=== PATIENT | male | born 1940 | race Caucasian/White ===

== ENCOUNTER 2018-02-19 00:35 | Emergency (ER) | payer MEDICARE, OTHER ==
[~2018-02-19] VITALS: Ht 167.6 cm; Wt 74.8 kg
--- OUTSIDE RECORDS SUMMARY | ~2018-02-19 | XMS | Clinical Summary ---
Demographics + + + | Address | [address] | | | [place] [address] | + + + | Home Phone | | + + + | Preferred Language | Unknown | + + + | Marital Status | | + + + | Scientology Affiliation | 1077 | + + + | Race | Unknown | + + + | Ethnic Group | Unknown | + + + Author + + + | Author | [facility] | | | and Andrewana | + + + | Organization | [facility] | | | and Andrewana | + + + | Address | Unknown | + + + | Phone | Unavailable | + + + Support + + +---------+ + | Name | Relationship | Address | Phone | + + +---------+ + | LILIA ROBERT ECON | Unknown | | + + +---------+ + Care Team Providers + +------+ + | Care Forming Yardage Control Operator Name | Role | Phone | + +------+ + PP | Unavailable | + +------+ + Allergies Not on File Current Medications Not on file Active Problems Not on file Social History + +-------+ +--------+------+ | Tobacco Use | Types | Packs/Day | Years | Date | | | | | Used | | + +-------+ +--------+------+ | Never Assessed | | | | | + +-------+ +--------+------+ + + + | Sex Assigned at | Date Recorded | | | | + + + | Not on file | | + + + Plan of Treatment + + + + + | Health Maintenance | Due Date | Last Done | Comments | + + + + + | Vaccine: | | | | | Dtap/Tdap/Td (1 - | 0 | | | | Tdap) | | | | + + + + + | Vaccine: Zoster (#1) | | | | | | 1 | | | + + + + + | Vaccine: | | | | | Pneumococcal 65+ | 6 | | | | Low/Medium Risk (1 | | | | | of 2 - PCV13) | | | | + + + + + | Vaccine: Influenza | | | | | (Season Ended) | 8 | | | + + + + + Results Not on filefrom Last 3 Months"
--- OUTSIDE RECORDS SUMMARY | ~2018-02-19 | XMS | Clinical Summary ---
Demographics + + + | Address | [address] | | | [place] [address] | + + + | Home Phone | | + + + | Preferred Language | Unknown | + + + | Marital Status | | + + + | Sikh Affiliation | 1077 | + + + | Race | Unknown | + + + | Ethnic Group | Unknown | + + + Author + + + | Author | [facility] | | | and Andrewana | + + + | Organization | [facility] | | | and Andrewana | [...] Team Providers + +------+ + | Care Alcoholism Worker Name | Role | Phone | + [...]
[~2018-02-19 00:35] MED LIST: ASPIRIN EC81 MG PO; CETIRIZINE HCL10 MG PO; CIALIS20 MG PO; CIALIS5 MG PO; DOXAZOSIN MESYLA1 MG PO; FELODIPINE ER10 MG PO; FLUTICASONE PRO16 GM NS; LISINOPRIL40 MG PO; MULTI-DAY VITA1 EACH PO; NORCO 5-325 TA1 EACH PO; OMEPRAZOLE20 MG PO; PYRIDIUM200 MG PO; UROXATRAL10 MG PO; VITAMIN D2400 UNIT PO; VITAMIN E400 UNIT PO; VITAMINS
--- NOTE | 2018-02-19 06:26 | EKG ---
[facility] [address] [place] [address] Signed Normal sinus rhythm Nonspecific ST abnormality Abnormal ECG No previous ECGs available Confirmed by YULIANA BRITTON MD ([id number]) on 02/19/2018 6:26:05 AM Electronically Signed By: YULIANA BRITTON MD 02/19/18 0626 PATIENT NAME: ALLIE ROMO KENDAL Electrocardiogram DATE OF : 42 PHYSICIAN: YULIANA BRITTON MD REPORT #: [id number] REPORT IS CONFIDENTIAL AND NOT TO BE RELEASED WITHOUT AUTHORIZATION
== END 2018-02-19 02:01 | disposition home or self-care (01) ==
LOC: ED 00:35
DX: R00.2 Palpitations (principal); M79.604 Pain in right leg; I10 Essential (primary) hypertension; Z79.899 Other long term (current) drug therapy
CPT/HCPCS: 71045; 80053; 83735; 84484; 85025; 93005; 93010; 99283

== ENCOUNTER 2025-07-01 12:08 | Emergency (ER) | payer MEDICARE, OTHER ==
[~2025-07-01] VITALS: Ht 167.6 cm; Wt 54.5 kg
[~2025-07-01 12:08] MED LIST changes: -LISINOPRIL40 MG PO; +ZESTRIL20 MG PO
[2025-07-01 12:44] LABS: BASOPHILS 0.1 % (0.2-1.2); EOSINOPHILS 0 % (0.8-7.0); LYMPHOCYTES 2.9 % (21.8-53.1); MCH 30.3 PG (25.7-32.2); MCHC 34.0 g/dL (32.3-36.5); MCV 89.1 fL (79.0-92.2); MONOCYTES 4.8 % (5.3-12.2); NEUTROPHILS 91.5 % (34.0-67.9); RBC 4.42 M/uL (4.63-6.08)
[2025-07-01 13:02] LABS: ALT (SGPT) 19.0 U/L (14-59); AST (SGOT) 26.0 U/L (15-37); GLOMERULAR FILTRATION RATE,EST 85.0 mL/min (>60); PROTEIN, TOTAL 6.5 g/dL (6.4-8.2); UREA NITROGEN 34.0 mg/dL (7-18)
[2025-07-01] MEDS ORDERED: CITALOPRAM HBR20 MG PO (13:03)
[2025-07-01] MEDS ORDERED: SPIRIVA RESPIMAT4 GM INH (13:03)
[2025-07-01 13:55] LABS: LACTIC ACID, BLOOD 0.7 mmol/L (0.4-2.0)
[2025-07-01] MEDS ORDERED: FUROSEMIDE 40 MG/4 ML VIAL IV ONE (14:30)
[2025-07-01] MEDS ORDERED: ASPIRIN 81 MG CHEW PO ONE (15:15)
[2025-07-01 20:01] LABS: INFLUENZA B NAA NEGATIVE (NEGATIVE); RESPIRATORY SYNCYTIAL VIR NAA NEGATIVE (NEGATIVE)
[2025-07-01 21:40] VITALS: BP 114/78
--- NOTE | 2025-07-03 15:13 | EKG ---
[facility] [address] [facility] [place] [address] Signed Normal sinus rhythm Low voltage QRS Cannot rule out Anteroseptal infarct , age undetermined Abnormal ECG When compared with ECG of 19-FEB-2018 00:59, Minimal criteria for Anteroseptal infarct are now present Non-specific change in ST segment in Anterolateral leads Nonspecific T wave abnormality now evident in Inferior leads T wave inversion now evident in Anterior leads Confirmed by Tiffanie Hall MD ([id number]) on 07/03/2025 3:12:50 PM Electronically Signed By: TIFFANIE HALL MD 07/03/25 1513 PATIENT NAME: ALLIE ROMO Electrocardiogram DATE OF : 42 PHYSICIAN: TIFFANIE HALL MD REPORT #: [id number] REPORT IS CONFIDENTIAL AND NOT TO BE RELEASED WITHOUT AUTHORIZATION
== END 2025-07-01 21:50 | disposition short-term general hospital (02) ==
LOC: ED 12:08
PROVIDERS: Emergency Medicine
DX: I21.4 Non-ST elevation (NSTEMI) myocardial infarction (principal); I11.0 Hypertensive heart disease with heart failure; I50.9 Heart failure, unspecified; J18.9 Pneumonia, unspecified organism; Z87.891 Personal history of nicotine dependence; Z79.899 Other long term (current) drug therapy; Z11.59 Encounter for screening for other viral diseases
CPT/HCPCS: 36415; 71045; 80053; 83605; 83735; 83880; 84484; 85025; 87502; 93005; 93010; 96365; 96375; 99285-25; A9270; J0696; J1938; U0002

== ENCOUNTER 2025-09-12 17:39 | Inpatient (IN) | payer OTHER, MEDICARE ==
[~2025-09-12] VITALS: Ht 167.6 cm; Wt 50.3 kg
[~2025-09-12 17:39] MED LIST changes: +CITALOPRAM HBR20 MG PO; +COZAAR50 MG PO; +SPIRIVA RESPIMAT4 GM INH; -ZESTRIL20 MG PO
[2025-09-12 21:06] LABS: BASOPHILS 0.1 % (0.2-1.2); EOSINOPHILS 0.7 % (0.8-7.0); LYMPHOCYTES 11.6 % (21.8-53.1); MCH 30.5 PG (25.7-32.2); MCHC 33.2 g/dL (32.3-36.5); MCV 91.8 fL (79.0-92.2); MONOCYTES 5.1 % (5.3-12.2); NEUTROPHILS 82.4 % (34.0-67.9); RBC 4.17 M/uL (4.63-6.08)
[2025-09-12 21:18] LABS: INR 1.06 (0.80-1.30); PROTIME 13.1 Sec (11.2-14.2)
[2025-09-12] MEDS ORDERED: ACETAMINOPHEN 325 MG TAB PO PRN (21:30)
[2025-09-12 21:31] LABS: ALT (SGPT) 23.0 U/L (14-59); AST (SGOT) 23.0 U/L (15-37); GLOMERULAR FILTRATION RATE,EST 89.0 mL/min (>60); PROTEIN, TOTAL 5.6 g/dL (6.4-8.2); UREA NITROGEN 17.0 mg/dL (7-18)
[2025-09-12] MEDS ORDERED: HYDROmorphone HCL 1 MG/ML SYR IV PRN (21:45)
[2025-09-12] MEDS ORDERED: IPRATROPIUM BROMIDE 2.5 ML VIAL INH PRN (21:45)
[2025-09-12] MEDS ORDERED: LIDOCAINE HCL 2% 5 ML SDV ONE (22:08)
[2025-09-12] MEDS ORDERED: SODIUM CHLORIDE 0.9% 20 ML IV ONE (22:08)
[2025-09-12] MEDS ORDERED: Ropivacaine HCl 0.5% 30 ML VIAL ONE (22:09)
--- NOTE | 2025-09-12 22:10 | NUR ---
PT RECEIVED TO ROOM 114 VIA STRETCHER FROM ER. RECEIVED REPORT VIA PHONE FROM SUPERVISOR CIGAR MAKING MACHINE. PTS FAMILY AT BEDSIDE FOR ADMISSION AND TOOK ALL BELONGINGS HOME. PT REQUIRED MAX ASSIST FOR TRANSFER TO HOSPITAL BED. ORIENTED X 4. REPORTS PAIN TO RIGHT HIP, WILL ADMINISTER PRN IV DILAUDID. LSC, PT IS ON 2L O2. CPOX PLACED. HRR CAMI IN THE 50'S. TELE IN PLACE. BTA, LBM 09/11. DUE TO VOID. LFA SL WNL. RLE SLIGHTLY SHORTENED, EXTERNALLY ROTATED. CMS INTACT. EXTREMITIES COOL, WARM BLANKET GIVEN. CALL LIGHT WITHIN REACH. PT TO BE NPO AT MIDNIGHT.
[2025-09-12 22:20] VITALS: BP 184/84
--- NOTE | 2025-09-12 23:04 | NUR ---
CONTACTED REGARDING PTS ELEVATED B/P UPON ADMISSION-RECEIVED ORDER FOR PRN HYDRALAZINE IF SBP >160. ALSO ASKED MD IF HE WANTED IVF FOR PT, MD STATED NO.
[2025-09-12 23:25] VITALS: BP 164/56
[2025-09-12 23:27] VITALS: BP 164/56
--- NOTE | 2025-09-12 23:28 | NUR ---
THREAD TRIMMER RECHECKED PT B/P AT RN REQUEST. PT STATES NO NEEDS AT THIS TIME AND RN NOTIFIED OF B/P.
[2025-09-13] VITALS (17 sets, daily range): BP systolic 102–176; BP diastolic 40–91
--- NOTE | 2025-09-13 00:36 | NUR ---
PT AWAKE, SLEEPING BETWEEN CARE. REPORTS BEING COMFORTABLE ENOUGH TO SLEEP SOME. PT IS NOW NPO FOR POTENTIAL SURGERY TUESDAY.
--- NOTE | 2025-09-13 01:22 | NUR ---
RETURNED GOODS RECEIVING CLERK OBTAINED VITALS. PT STATES NO NEEDS AT THIS TIME. CALL LIGHT WITHIN REACH.
--- NOTE | 2025-09-13 01:58 | NUR ---
B/P STILL ELEVATED, PRN HYDRALAZINE ADMINISTERED.
[2025-09-13 05:34] LABS: BASOPHILS 0.2 % (0.2-1.2); EOSINOPHILS 0 % (0.8-7.0); LYMPHOCYTES 5.0 % (21.8-53.1); MCH 30.2 PG (25.7-32.2); MCHC 33.3 g/dL (32.3-36.5); MCV 90.6 fL (79.0-92.2); MONOCYTES 2.5 % (5.3-12.2); NEUTROPHILS 92.0 % (34.0-67.9); RBC 4.57 M/uL (4.63-6.08)
--- NOTE | 2025-09-13 05:39 | NUR ---
PT YELLING OUT, DID NOT KNOW WHERE HE WAS. PT WAS EASILY REORIENTED. PT REPORTS NEEDING TO VOID, URINAL GIVEN TO PT. CMS TO RLE INTACT. BED ALARM IN PLACE FOR SAFETY. PT REMAINS NPO.
[2025-09-13 05:51] LABS: ALT (SGPT) 25.0 U/L (14-59); AST (SGOT) 22.0 U/L (15-37); GLOMERULAR FILTRATION RATE,EST 90.0 mL/min (>60); PROTEIN, TOTAL 6.2 g/dL (6.4-8.2); UREA NITROGEN 19.0 mg/dL (7-18)
--- NOTE | 2025-09-13 06:03 | EKG ---
[facility] [address] [facility] [place] [address] Signed Sinus bradycardia Nonspecific T wave abnormality Prolonged QT Abnormal ECG When compared with ECG of 01-JUL-2025 13:13, Vent. rate has decreased BY 44 BPM Minimal criteria for Anteroseptal infarct are no longer present Nonspecific T wave abnormality has replaced inverted T waves in Anterior leads QT has lengthened Confirmed by DEEP BELL MD ([id number]) on 09/13/2025 6:02:52 AM Electronically Signed By: DEEP BELL 09/13/25 0603 PATIENT NAME: ALLIE ROMO KENDAL Electrocardiogram DATE OF : 42 PHYSICIAN: DEEP BELL REPORT #: [id number] REPORT IS CONFIDENTIAL AND NOT TO BE RELEASED WITHOUT AUTHORIZATION
--- NOTE | 2025-09-13 06:04 | NUR ---
PT LYING IN BED. VITALS DONE, BLADDER SCAN DONE. NURSE NOTIFIED OF RESULTS. CALL LIGHT IN REACH, NO NEEDS AT THIS TIME.
--- NOTE | 2025-09-13 06:10 | NUR ---
CONTACTED REGARDING PT'S PVR OF 698cc. PT ONLY VOIDED 150cc. RECEIVED ORDER TO PLACE ZAMAN.
--- NOTE | 2025-09-13 06:25 | NUR ---
ZAMAN CATH PLACED USING STERILE PROCEDURE PER ORDERS. PATIENT TOLERATED WELL. CATH DRAINING TO BAG HANGING ON LEFT SIDE OF BED BELOW WAIST LEVEL. PATIENT DENIES NEEDS AT THIS TIME. CALL LIGHT IN REACH.
--- NOTE | 2025-09-13 07:07 | NUR ---
Pt report received from BRITTANI Zamudio. Pt is resting supine in bed, family at bedside. White board updated. Pt denies needs at this time. Side rails up x4, call light in reach.
[2025-09-13] MEDS ORDERED: CITALOPRAM HYDROBROMIDE 20 MG TAB PO SCH (09:00)
[2025-09-13] MEDS ORDERED: FAMOTIDINE 20 MG TAB PO SCH (09:00)
[2025-09-13] MEDS ORDERED: POTASSIUM CHLORIDE 20 MEQ in DEXTROSE 5% 250 ML IV ONE (09:30)
--- NOTE | 2025-09-13 10:04 | NUR ---
UR CLINICAL REVIEW: 2 MN FOR VERSALUS-PER CARD DOFFER MEETS INPT FOR HIP FRACTURE WITH NEED FOR PAIN MANAGEMENT, SURGICAL PROCEDURE AND POST PT/OT MEDICARE INPT 09/12/25 @ 213 ORDER MATCHES REG NO AUTH REQUIRED PER MEDICARE GUIDELINES DISCHARGE TO HOME WITH FAMILY SUPPORT WHEN STABLE
--- NOTE | 2025-09-13 10:30 | NUR ---
DID SURGICAL WIPE DOWN ON PATIENT. NEW GOWN. NURSE CAME IN AND HELPED PUT SCDS ON.
--- NOTE | 2025-09-13 10:54 | NUR ---
In with pt for reassessment. Pt reports his pain comes and goes but he is doing okay right now, feeling drowsy. Family member at bedside. IV Potassium Chloride started IV after IV reassessment (flushes well, good return, no pain, no redness or leaking noted).
--- NOTE | 2025-09-13 10:59 | NUR ---
Spoke with OR card tender Tammy and asked about whether or not we need to give or hold PO meds for this pt (has scheduled PO pepcid included) and was advised to hold the PO meds and not worry about IV pepcid at this time.
[2025-09-13] MEDS ORDERED: CEFAZOLIN SODIUM 2 GM in SODIUM CHLORIDE 0.9% 100 ML IV SCH ×2 (11:00→15:00)
[2025-09-13] MEDS ORDERED: TRANEXAMIC ACID IN NACL,ISO-OS 1,000 MG/100 ML PIGGYBACK IV SCH (11:00)
[2025-09-13] MEDS ORDERED: LIPITOR40 MG PO (11:08)
[2025-09-13] MEDS ORDERED: TOPROL XL25 MG PO (11:08)
[2025-09-13] MEDS ORDERED: FLOMAX0.4 MG PO (11:09)
--- NOTE | 2025-09-13 11:10 | NUR ---
MED REC COMPLETE
[2025-09-13] MEDS ORDERED: INTRA-ARTICULAR ANALGESIC INJECTION IAARTIC ONE (11:15)
--- NOTE | 2025-09-13 11:21 | NUR ---
plant taxonomist Tammy from OR here to transport pt to Day Surgery
--- NOTE | 2025-09-13 11:41 | NUR ---
INTO SEE PATIENT. PERSONAL HEALTH INFORMATION REVIEWED. GRANDSON (JACKSON) AT BEDSIDE. PATIENT LIVES IN A HOUSE. RAMP INTO THE HOUSE. HE JUST STARTED RECENTLY USING A CANE. IS ON HOSPICE AT HOME. FAMILY AT THE HOME 06/06. STOPPED DRIVING IN JUNE. DOES NOT WEAR OXYGEN OR CPAP. DENIES ANY DIFFCULTY PAYING UTILITIES OR OBTAINING FOOD. PATIENT DOES NOT WANT TO GO TO SNF AT TIME OF DISCHARGE. FAMILY SUPPORTS THIS. HE WOULD LIKE TO GET HOME TO HIS AND HOME HEALTH.
[2025-09-13] MEDS ORDERED: LIDOCAINE HCL 2% 5 ML SDV ONE (11:42)
[2025-09-13] MEDS ORDERED: BUPIVACAINE 0.75% IN DEXTROSE 2 ML AMP ONE (11:43)
[2025-09-13] MEDS ORDERED: MORPHINE SULFATE 1 MG/ML VIAL ONE (11:43)
[2025-09-13] MEDS ORDERED: KETAMINE in NS 50 MG/5 ML SYR ONE (11:43)
[2025-09-13] MEDS ORDERED: PHARMACY RENAL DOSE ADJUSTMENT 1 DOSE MISC PO SCH (12:00)
[2025-09-13] MEDS ORDERED: HYDROmorphone HCL 1 MG/ML SYR IV PRN (13:00)
[2025-09-13] MEDS ORDERED: MORPHINE SULFATE 4 MG/ML VIAL IV PRN (13:00)
[2025-09-13] MEDS ORDERED: PROCHLORPERAZINE EDISYLATE 10 MG/2 ML VIAL IV PRN (13:00)
[2025-09-13] MEDS ORDERED: NALOXONE HCL 0.4 MG SYR IV PRN (13:00)
[2025-09-13] MEDS ORDERED: HYDROCODONE/ACETA 7.5/325 TAB PO PRN (13:15)
[2025-09-13] MEDS ORDERED: KETOROLAC TROMETHAMINE 30 MG/ML VIAL IV PRN (13:15)
--- NOTE | 2025-09-13 13:21 | NUR ---
09/13/25 1321 Nancy Riddle PATIENT IS ABLE TO MOVE HIS RIGHT FOOT AND TOES AND UNABLE TO MOVE HIS LEFT FOOT AND TOES. HE DOES REPORT SENSATION ON THE LEFT, BUT REPORTS IT FEELS NUMB. OXYGEN REMAINS 100% ON 6L VIA MASK AND OXYGEN MASK IS REMOVED. PATIENT DENIES PAIN.
--- NOTE | 2025-09-13 14:04 | NUR ---
Pt back to room at 1353 hours, transported via bed by DIGITAL MARKETING APPRENTICE Patrick. Pt is A&O reports he can feel touch in both feet and legs, no N&T at this time, denies pain at this time. Dressing is CDI. Pt's grandson is at bedside. VSS. Pt is on CPOX, SCDs on, call light in reach. Pt provided with iced water, and snacks and encouraged to slowly try to eat and drink. Pt has no c/o nausea at this time.
--- NOTE | 2025-09-13 14:27 | NUR ---
TELE #4 PLACED PER ORDER, PT STATES NO CURRENT NEEDS, VISITOR AT BEDSIDE, CALL LIGHT WITHIN REACH.
--- NOTE | 2025-09-13 16:00 | NUR ---
In with pt for hourly post op VS. Pt is working with Physical Therapy at this time. VSS. Noted that IV site appears to be infiltrated. 87ml of ancef has been infused with 13mls remaining. Reviewed policy on IV infiltration and will apply a hot pack to IV site after removing IV. Will start another IV as pt has more IV medications to receive on director apparel.
--- NOTE | 2025-09-13 16:08 | NUR ---
Physical therapist in with pt
--- NOTE | 2025-09-13 19:45 | NUR ---
PATIENT RESTING IN BED. DENIES NEEDS AT THIS TIME. CALL LIGHT IN REACH. BED ALARM ON.
[2025-09-13] MEDS ORDERED: DOXAZOSIN MESYLATE 1 MG TAB PO SCH (21:00)
[2025-09-13] MEDS ORDERED: SENNOSIDES 1 TAB PO SCH (21:00)
[2025-09-13] MEDS ORDERED: ASPIRIN 325 MG TAB PO SCH (21:00)
--- NOTE | 2025-09-13 23:27 | NUR ---
PATIENT RESTING IN BED. SCHEDULED IV ABX INFUSING PER ORDER. ZAMAN CATH CARE PROVIDED PER ORDER. PATIENT DENIES FURTHER NEEDS. CALL LIGHT IN REACH. BED ALARM ON.
[2025-09-14] VITALS (9 sets, daily range): BP systolic 102–121; BP diastolic 40–50
--- NOTE | 2025-09-14 01:30 | NUR ---
PATIENT RESTING IN BED. DENIES NEEDS AT THIS TIME. CALL LIGHT IN REACH.
--- NOTE | 2025-09-14 06:39 | NUR ---
VIDEO ARCADE MANAGER OBTAINED VITALS AND I&O. ZAMAN EMPTIED AND FRESH ICE PACK PLACED ON PT HIP. PT STATES NO NEEDS AT THIS TIME. CALL LIGHT WITHIN REACH AND BED ALARM ON.
--- NOTE | 2025-09-14 07:15 | NUR ---
Pt report received from BRITTANI Pierce
--- NOTE | 2025-09-14 08:56 | NUR ---
PATIENT IN BED AT THIS TIME. THIS PERSONNEL MANAGER CHARTED HOURLY ROUNDS. PATIENT REFUSED CHAIR AT THIS TIME BUT IS WILLING TO GET INTO CHAIR AFTER BREAKFAST. CALL LIGHT WITHIN REACH, NO FURTHER NEEDS.
--- NOTE | 2025-09-14 10:20 | NUR ---
In with pt for assessment, pt has been sleeping for most of the morning. SPO2 at 87% on room air. Pt had removed NC at some point. Spoke with Yahaira in RT who advised that she was told this pt has a hx of COPD and is a former smoker. Pt's grandson states he was never told that his grandpa has COPD. He does state that he feels like his mentation is declining at a rapid rate but that his grandpa tries to act like he's not having any issues. He advises that he just goes from his bed to a chair in the living room and isn't very active and he doesn't eat much, especially when his is ill. Pt did not eat his breakfast this morning. I noted that he only had about 200ml urine output documented on the board in the room for restaurant shift supervisor from 10pm until now and the urine in the cath bag (very little) is dark and clear. Pt is not taking much fluid PO. Spoke with Dr. Villalba and advised him of this as he advised he is also caring for this pt. Verbal order obtained from Dr. Villalba to administer one 500ml bolus of LR, one time, now. Repeated order back to Dr. Villalba and entered it.
[2025-09-14] MEDS ORDERED: LACTATED RINGER'S 500 ML IV SCH (10:30)
--- NOTE | 2025-09-14 17:39 | NUR ---
Notified by RT Yahaira that the pt's family member at bedside is asking about when the pt's next pain med is due.
--- NOTE | 2025-09-14 17:56 | NUR ---
TOOK OUT ROOM TRASH AND CLEANED UP ROOM.
--- NOTE | 2025-09-14 18:55 | NUR ---
PC to Dr. Villalba to update him on this pt's urine output for the shift. It seems to have decreased during the second half of the shift. Verbal order received from Dr. Villalba for CBC now, CBC and BMP in the a.m., UA with reflex, 500ml bolus LR x1 now. Repeated orders back to him for clarification. Orders entered.
[2025-09-14] MEDS ORDERED: LACTATED RINGER'S 500 ML IV ONE (19:15)
[2025-09-14 19:21] LABS: BASOPHILS 0.3 % (0.2-1.2); EOSINOPHILS 3.3 % (0.8-7.0); LYMPHOCYTES 6.8 % (21.8-53.1); MCH 30.5 PG (25.7-32.2); MCHC 33.0 g/dL (32.3-36.5); MCV 92.2 fL (79.0-92.2); MONOCYTES 6.4 % (5.3-12.2); NEUTROPHILS 82.9 % (34.0-67.9); RBC 3.74 M/uL (4.63-6.08)
--- NOTE | 2025-09-14 19:43 | NUR ---
REPORT RECEIVED FROM DAY SHIFT RN. PT LYING IN BED AWAKE. DENIES NEEDS. WHITE BOARD UPDATED. CALL LIGHT IN REACH. BED ALARM FOR SAFETY.
--- NOTE | 2025-09-14 20:19 | NUR ---
PT SITUP IN BED RESTING. VITALS DONE, FACE WASHED, ZAMAN EMPTIED. CALL LIGHT IN REACH, NO NEEDS AT THIS TIME.
--- NOTE | 2025-09-14 20:35 | NUR ---
PHONED FOR MED CLARIFICATION. NEW TELEPHONE ORDERS RECEIVED VERIFIED WITH READBACK METHOD.
[2025-09-14 21:03] LABS: BLOOD/HGB, URINE SMALL (Negative); KETONE, URINE NEGATIVE (Negative); LEUK ESTERASE, URINE TRACE (negative); NITRITE, URINE NEGATIVE (negative)
--- NOTE | 2025-09-14 21:06 | NUR ---
PT RESTING WITH EYES CLOSED. AWAKENS EASILY. ALERT AND ORIENTED X 2 AT THIS TIME. EVENING ASSESSMENT COMPLETE. SCHEDULED MEDS ADMIN PER EMAR. PT DENIES PAIN AT THIS TIME. RIGHT HIP DRESSING INTACT WITH SMALL AMOUNT OLD DRAINAGE. CMS INTACT. SCD'S/TEDS/ICE IN PLACE. ROLLED TOWELS UNDER HEELS. ZAMAN PATENT WITH SMALL AMOUNT YELLOW URINE. UA SENT PER ORDER. ASSISTED PT TO REPOSITION IN BED. PT DENIES FURTHER NEEDS. CALL LIGHT IN REACH. BED ALARM FOR SAFETY.
[2025-09-14 21:18] LABS: EPITHELIAL CELLS, URINE NONE SEEN /lpf (0-1+)
[2025-09-14 21:19] LABS: BACTERIA, URINE 1+ /hpf (negative); CASTS, URINE HYALINE 1+ \\lpf; CRYSTALS, URINE CALCIUM OXALATE 1+ (0-1+); REFLEX CULTURE, URINE Yes (No)
--- NOTE | 2025-09-14 22:52 | NUR ---
PT RESTING IN BED WITH EYES CLOSED. RESPIRATIONS EVEN. SpO2 97% ON 1L/NC. TELE #[address] HR 60'S. CALL LIGHT IN REACH. BED ALARM FOR SAFETY.
--- NOTE | 2025-09-15 00:58 | NUR ---
CPOX ALARMING. ISSUE RESOLVED. PT AWAKE IN BED. DENIES PAIN AT THIS TIME. CONFUSED ON TIME OF DAY. REORIENTATION PROVIDED. PT DENIES NEEDS. CALL LIGHT IN REACH. BED ALARM FOR SAFETY.
[2025-09-15 01:10] VITALS: BP 121/61
--- NOTE | 2025-09-15 01:11 | NUR ---
PT SITTING UP IN BED WATCHING TV. VITALS DONE, ZAMAN EMPTIED. CALL LIGHT IN REACH, NO NEEDS AT THIS TIME.
--- NOTE | 2025-09-15 01:59 | NUR ---
PT AWAKE IN BED. REPORTS RIGHT HIP PAIN. PRN FOR PAIN ADMIN PER EMAR. NO FURTHER NEEDS. CALL LIGHT IN REACH.
--- NOTE | 2025-09-15 02:10 | NUR ---
ZAMAN CARE COMPLETE. LINENS UNDER PT CHANGED. REDNESS NOTED ON COCCYS, BLANCHABLE. 2PA TO REPOSITION WITH PILLOW UNDER RIGHT HIP. FRESH ICE PACK PLACED. PT ABLE TO ASSIST WITH CARES. NO FURTHER NEEDS. BED ALARM IN PLACE. CALL LIGHT IN REACH.
--- NOTE | 2025-09-15 04:16 | NUR ---
PT RESTING IN BED WITH EYES CLOSED. RESPIRATIONS EVEN. CALL LIGHT IN REACH.
[2025-09-15 05:16] LABS: BASOPHILS 0.4 % (0.2-1.2); EOSINOPHILS 8.8 % (0.8-7.0); LYMPHOCYTES 10.4 % (21.8-53.1); MCH 30.5 PG (25.7-32.2); MCHC 33.0 g/dL (32.3-36.5); MCV 92.2 fL (79.0-92.2); MONOCYTES 6.8 % (5.3-12.2); NEUTROPHILS 73.4 % (34.0-67.9); RBC 3.71 M/uL (4.63-6.08)
[2025-09-15 05:17] VITALS: BP 157/58
--- NOTE | 2025-09-15 05:18 | NUR ---
PT LYING IN BED WATCHING TV. HIPS FLOPATED WITH PILLOWS, VITALS DONE, WATER FILLED. CALL LIGHT IN REACH, NO NEEDS AT THIS TIME.
[2025-09-15 05:24] LABS: GLOMERULAR FILTRATION RATE,EST 87.0 mL/min (>60); UREA NITROGEN 29.0 mg/dL (7-18)
--- NOTE | 2025-09-15 05:53 | NUR ---
PT DENIES PAIN. ASSISTED TO REPOSITION WITH PILLOW UNDER BOTH HIPS. FRESH ICE PACK TO RIGHT HIP. PT DENIES NEEDS. BED ALARM FOR SAFETY. CALL LIGHT IN REACH.
--- NOTE | 2025-09-15 07:15 | NUR ---
REPORT RECIEVED FROM BRITTANI RODRIGUEZ. PATIENT RESTING IN BED WITH HIS EYES CLOSED. EVEN AND UNLABORED RESPIRATIONS NOTED. PATIENT IS 92% ON 1.5L NC. CPOX AT BEDSIDE. WHITE BOARD UPDATED. CALL LIGHT AND PERSONAL BELONGINGS ARE WITHIN REACH.
--- NOTE | 2025-09-15 08:50 | NUR ---
PATIENT RESTING IN BED EATING BREAKFAST. KATHARINE PIKCENS IN ROOM ASSISTING PATIENT. CALL LIGHT IS WITHIN REACH.
[2025-09-15 09:06] VITALS: BP 161/67
--- NOTE | 2025-09-15 09:12 | NUR ---
PT WAS CONFUSED THIS MORNING, HE DID NOT KNOW WHERE HE WAS OR WHAT DAY OF THE WEEK IT WAS. HE WANTS TO SIT IN THE CHAIR, SO SOON TWO PEOPLE WERE AVAILABLE - WE GOT THE PT TO THE CHAIR. PT DID NOT EAT BREAKFAST. PT HAS NOT BEEN DRINKING MUCH AT ALL. PT HAS CALL LIGHT AND CHAIR ALARM SET.
--- NOTE | 2025-09-15 09:45 | NUR ---
PATIENT MEDICATED PER EMAR. PATIENT REPORTING 10/10 PAIN IN HIS HIP. PATIENT GIVEN PRN PAIN MEDICATION. PATIENT DID NOT ACTUALLY EAT BREAKFAST DUE TO IT NOT SOUNDING GOOD WHEN HE ATTEMPTED TO EAT. PATIENT DENIES ANY NAUSEA, BUT STATES "MY PAIN IS TOO MUCH RIGHT NOW, I CAN'T THINK ABOUT FOOD." PATIENT EDUCATED THAT THE PAIN MEDICATION CAN MAKE HIM SICK IF HE DOES NOT EAT FOOD WITH IT. PATIENT AGREED TO DRINK CHOCOLATE PROTEIN DRINK PROVIDED. PATIENT WITHOUT FURTHER NEEDS AT THIS TIME. CALL LIGHT AND PERSONAL BELONGINGS ARE WITHIN REACH.
--- NOTE | 2025-09-15 10:45 | NUR ---
PATIENT SITTING UP IN HIS CHAIR WITH HIS GRANDSON, JACKSON AT BEDSIDE. PATIENT REPORTS HIS PAIN IS DOWN TO A "3 NOW" OUT OF 10. PATIENT WITHOUT FURTHER NEEDS AT THIS TIME. CALL LIGHT AND PERSONAL BELONGINGS ARE WITHIN REACH. PATIENT'S GRANDSON EXPRESSED CONCERNS FOR "SHINGLES ON HIS HEAD". NOTIFIED AND STATES HE IS NOT CONCERNED FOR SHINGLES ON AREA.
--- NOTE | 2025-09-15 11:30 | NUR ---
IN ROOM TO PULL PATIENT'S ZAMAN. MILLI PICKENS IN ROOM AND WITH VERBAL ORDER TO HOLD OFF ON PULLING PATIENT'S ZAMAN. MILLI WANTS PATIENT TO RECIEVE A DOSE OF FLOMAX NOW, AND THEN WAIT 1-2 HOURS TO MAKE SURE PATIENT IS NOT GOING TO HAVE RETENTION BEFORE PULLING THE ZAMAN OUT. MILLI STATES SHE WILL ADD ORDERS. NO FURTHER ORDERS FOR THIS RN AT THIS TIME.
--- NOTE | 2025-09-15 12:45 | NUR ---
PATIENT SITTING UP IN HIS CHAIR WITH HIS GRANDSON AT HIS SIDE. FRESH ICE WATER PROVIDED. PATIENT HEART RATE NOTED TO BE BARDYCARDIC WHEN PATIENT SLEEPING. NOTIIED AND STATES PATIENT HAS CHRONIC BRADYCARDIA. WITH NO NEW ORDERS AT THIS TIME.
[2025-09-15] MEDS ORDERED: TAMSULOSIN HCL 0.4 MG CAP PO ONE (13:45)
[2025-09-15] MEDS ORDERED: VALACYCLOVIR HCL 500 MG TAB PO SCH (14:00)
[2025-09-15 14:03] VITALS: BP 102/40
--- NOTE | 2025-09-15 14:16 | NUR ---
PT WAS ASLEEP IN THE CHAIR, PHYSICAL THERAPY AND THIS PHYSICAL THERAPIST TECHNICIAN ASSISTED THE PT BACK TO BED FROM HIS CHAIR. THIS PT IS A 2 PA, AND KEPT FALLING ASLEEP WHILE WE WERE TRYING TO GET HIM TO MOVE. ONCE PT WAS IN BED, HE WAS ASLEEP. SET BED ALARM. TV ON, GRANDSON LEFT. CALL LIGHT IN PT'S HAND.
--- NOTE | 2025-09-15 14:33 | NUR ---
PATIENT MEDICATED PER EMAR. PATIENT RESTING IN BED WITH HIS EYES CLOSED, EASLIY AROUSABLE WITH VERBAL STIMULI. PATIENT REQUESTING TO "GO BACK TO SLEEP FOR A LITTLE BIT LONGER". PATIENT DENIES ANY PAIN AND STATES HE WILL CALL IF HE NEEDS SOMETHING. CALL LIGHT AND PERSONAL BELONGINGS ARE WITHIN REACH.
--- NOTE | 2025-09-15 14:52 | NUR ---
PATIENT CALLED REQUESTING TO GO BACK TO BED. KATHARINE PICKENS AND EMBER PT STATES THEY WILL ASSIST PATIENT BACK TO BED.
--- NOTE | 2025-09-15 15:12 | NUR ---
REPORT RECEIVED FROM BRITTANI PERSON. PATIENT RESTING IN BED, RESPIRATIONS EVEN AND UNLABORED. NC IN PLACE, CPOX AT BEDSIDE. NO NEEDS IDENTIFIED, CALL LIGHT IN REACH.
--- NOTE | 2025-09-15 16:16 | NUR ---
ROUNDED ON PATIENT, TELE BATTERY REPLACED. PATIENT RESTING WITH EYES CLOSED, RESPIRATIONS EVEN AND UNLABORED. NO NEEDS IDENTIFIED, CALL LIGHT IN REACH
[2025-09-15 17:19] VITALS: BP 125/66
--- NOTE | 2025-09-15 17:23 | NUR ---
VS OBTAINED AND RECORDED, PATIENT WOKE EASILY TO VERBAL STIMULI, ANSWERED ALL ORIENTATION QUESTIONS CORRECTLY. INTAKE AND OUTPUT DOCUMENTED. ZAMAN CATHETER PULLED PER ORDER. FRESH ICE PACK ON RIGHT HIP PER ORDER, DRESSING IS INTACT WITH QUARTER SIZED DRY SHADOWING ON THE UPPER PART OF THE DRESSING AND DIME SIZED SHADOWING ON THE LOWER PART OF THE DRESSING. NO OTHER NEEDS IDENTIFIED, CALL LIGHT IN REACH
--- NOTE | 2025-09-15 17:51 | NUR ---
PATIENT UP TO CHAIR WITH X2 PERSON ASSIST AND USE OF FWW. HEEL PROTECTION IN PLACE, WILLIAM HOSE IN PLACE, ICE PACK ON RIGHT HIP. PATIENT OXYGEN TITRATED TO ROOM AIR, CPOX MONITOR SHOWING 98% ON 1L. PATIENT UP IN CHAIR BEING ASSISTED WITH DINNER BY SEATING CAPTAIN. BLANCHABLE REDNESS NOTED ON BUTTOCKS, WAFFLE MATTRESS PLACED ON BED. NO FURTHER NEEDS AT THIS TIME. CALL LIGHT IN REACH.
--- NOTE | 2025-09-15 18:39 | NUR ---
Spoke with Araseli Mcdonough regarding this patient as she had initially advised me to pull his white today, then after assessing him had decided to restart pt's home flomax dose then pull white after urine output increased; however, we pulled the white this evening around 1700 hours before reading Araseli's prog note that states that. Araseli advised no new orders to give and to monitor patient's U/O, bladder scan him if he hasn't voided after [address] Villalba, if the bladder scan shows 300ml or greater, restart white. Primary RN updated.
--- NOTE | 2025-09-15 19:26 | NUR ---
REPORT RECEIVED FROM DAY SHIFT RN. PT SITTING IN RECLINER ALERT. DENIES NEED. WHTIE BOARD UPDATED. CALL LIGHT IN REACH.
[2025-09-15 20:29] VITALS: BP 191/89
[2025-09-15] MEDS ORDERED: TAMSULOSIN HCL 0.4 MG CAP PO SCH (21:00)
--- NOTE | 2025-09-15 21:01 | NUR ---
PT AWAKE IN RECLINER. 2PA WITH FWW BACK TO BED. PT ABLE TO FOLLOW DIRECTIONS, RKUNAL WELL. EVENING ASSESSMENT COMPLETE. SCHEDULED MEDS ADMIN PER EMAR. PT REPORTS PAIN IN RIGHT HIP BUT UNABLE TO GIVEN PAIN NUMBER. FLACC SCALE =4. PRN FOR PAIN ADMIN PER EMAR. VS OBTAINED. BP ELEVATED. MD AT BEDSIDE. PRN FOR HTN ADMIN PER EMAR. VERBAL ORDERS RECEIVED TO RESTART HOME MEDS IN AM. VERIFIED WITH READBACK METHOD. RIGHT HIP DRESSING WITH SMALL AMOUNT OLD DRAINAGE. CMS INTACT. SCD'S/TEDS IN PLACE. TOWELS UNDER HEELS. FRESH ICE TO RIGHT HIP. PT DENIES FURTHER NEEDS. BED ALARM FOR SAFETY. CALL LIGHT IN REACH.
--- NOTE | 2025-09-15 22:15 | NUR ---
PT BLADDER SCANNED FOR 355 ML. PT DENIES THE URGE TO VOID. MD UPDATED. THIS RN INSTRUCTED TO PLACE ZAMAN PREVIOUSLY ORDERED.
[2025-09-15] MEDS ORDERED: LIDOCAINE 2% VISCOUS 6 ML SYR TOP ONE (22:30)
--- NOTE | 2025-09-15 23:10 | NUR ---
IN FOR ZAMAN PLACEMENT. SCANT AMOUNT RED DRAINAGE NOTED FROM MEATUS DURING ALEXANDRA CARE. 16F ZAMAN PLACED FOLLOWING STERILE PROCEDURE WITH IMMEDIATE RETURN OF 175 ML CONCENTRATED URINE. PT KRUNAL WELL. BED ALARM IN PLACE. CALL LIGHT IN REACH.
[2025-09-16] VITALS (14 sets, daily range): BP systolic 127–174; BP diastolic 49–73
--- NOTE | 2025-09-16 01:20 | NUR ---
PT AWAKE IN BED. DENIES PAIN. CPOX IN PLACE. SpO2 94% ON RA. TELE #4. HR 70'S. DENIES NEEDS. CALL LIGHT IN REACH. BED ALARM FOR SAFETY.
--- NOTE | 2025-09-16 02:45 | NUR ---
PT RESTING IN BED WITH EYES CLOSED. RESPIRATIONS EVEN. SpO2 92% ON RA. HR 70'S. BED ALARM IN PLACE. CALL LIGHT IN REACH.
--- NOTE | 2025-09-16 03:00 | NUR ---
ELEVATED BP NOTED. PRN FOR HTN ADMIN PER EMAR. PT CONTINUES TO DENY PAIN. PT RESTING IN RELAXED POSITION. ASSESSMENT UNCHANGED. NO NEEDS AT THIS TIMES. CALL LIGHT IN REACH.
--- NOTE | 2025-09-16 04:09 | NUR ---
PT IN BED RESTING WITH EYES CLOSED. RESPIRATIONS EVEN. CALL LIGHT IN REACH.
--- NOTE | 2025-09-16 05:57 | NUR ---
PT HEARD CALLING OUT. PT CONFUSED ON SITUATION/EVENTS. ORIENTATION AND REASSURANCE PROVIDED. PT RECEPTIVE. VS AND I&O OBTAINED. SIPS OF WATER PROVIDED. PT COUGHING WITH SWALLOWING. PT ENCOURAGED TO CHIN TUCK WHEN SWALLOWING. PT REPORTS BACK/RIGHT HIP PAIN 5/10. PRN FOR PAIN ADMIN PER EMAR WITH NECTAR THICK LIQUIDS. NO COUGHING OR CHOKING NOTED. PT REPOSITIONED IN BED FOR COMFORT. FRESH ICE PACK TO RIGHT HIP. PT REORIENTED TO NURSE CALL LIGHT. CURTAIN LEFT OPEN PER REQUEST. BED ALARM FOR SAFETY. CALL LIGHT IN HAND.
[2025-09-16] MEDS ORDERED: ARTIFICIAL TEARS 15 ML BTL OU PRN (07:30)
--- NOTE | 2025-09-16 07:38 | NUR ---
RECEIVED REPORT FROM MOHIT RN Mary Ellen RODRIGUEZ. PATIENT RESTING IN BED, LABS JUST DRAWN AT BEDSIDE. PATIENT STATES PAIN IS 1-2/10 AT THIS TIME, STATES FEELS PRETTY GOOD RIGHT NOW. PT DENIES ANY ITCHING/PAIN TO (L) FACE. DENIES ANY NEEDS AT THIS TIME, CALL LIGHT WITHIN REACH, BED ALARM IN PLACE FOR SAFETY. PT REQUESTED DOOR TO BE SHUT, CURTAIN LEFT OPEN. INFORMED PT THIS RN WILL BACK SHORTLY FOR ASSESSMENT AND MEDS.
[2025-09-16 07:40] LABS: BASOPHILS 0.2 % (0.2-1.2); EOSINOPHILS 3.5 % (0.8-7.0); LYMPHOCYTES 7.1 % (21.8-53.1); MCH 30.2 PG (25.7-32.2); MCHC 33.6 g/dL (32.3-36.5); MCV 89.9 fL (79.0-92.2); MONOCYTES 6.6 % (5.3-12.2); NEUTROPHILS 82.1 % (34.0-67.9); RBC 3.97 M/uL (4.63-6.08)
[2025-09-16 07:50] LABS: GLOMERULAR FILTRATION RATE,EST 98.0 mL/min (>60); UREA NITROGEN 22.0 mg/dL (7-18)
--- NOTE | 2025-09-16 07:55 | NUR ---
THIS RN & NIGHT RN NOTIFIED OF INCREASING ITCHY TO (L) EYE, SLIGHTLY WATERING, DENIES PAIN. INFORMED OF INCREASED COUGHING WITH WATER LASTNIGHT WHILE TAKING PILLS, THICKENED LIQUID AND PT IMPROVED. DISCUSSED BP AND GETTINGN PRN HYDRALAZINE X2 THROUGHOUT NIGHT. VERBAL ORDERS FOR ARTIFICAL TEARS PRN, ST EVALUATION TO ASSESS ASPIRATION RISK, DC METOPROLOL AND START LOSARTAN 100MG DAILY, ORDERS FOR LAB THIS MORNING: CBC/BMP. NIGHT RN JENNIFER ALSO NOTED THE PLATELETS AND PER MD CONTINUE THE ASPIRIN ORDERED. THIS RN VERIFIED ORDERS AND INPUT ORDERS FOR MD.
--- NOTE | 2025-09-16 08:44 | OR ---
[facility] [address], [place] [address] Signed DATE OF OPERATION: 09/13/2025 SURGEON: Harjinder John MD PREOPERATIVE DIAGNOSIS: Displaced femoral neck fracture, right. POSTOPERATIVE DIAGNOSIS: Displaced femoral neck fracture, right. PROCEDURE PERFORMED: Right bipolar hemiarthroplasty. INTERIOR PLANT CARETAKER: Araseli Rodney PA-C. Araseli was present and critical for all portions of procedure. ANESTHESIA: Spinal. BLOOD LOSS: 150 mL. IMPLANTS: DePuy Actis size 6 stem, mm head and a 52 mm bipolar. BRIEF HISTORY: Rafal is an 85-year-old gentleman who suffered a ground level fall last night. He fractured his hip and was brought to the ER and admitted to the medical service. Risks, benefits, and alternatives of surgery discussed with he and his grandson and they elected to proceed. DESCRIPTION OF PROCEDURE: Once consent was obtained, he was taken to the operating room. After adequate anesthesia he was placed on the OR table in the left lateral decubitus position. All downside pressure points were well padded. An axillary roll was placed. The hip was then prepped and draped in a standard sterile fashion. Standard anterolateral approach through the skin and subcutaneous tissue was taken down to the IT band which was divided longitudinally. The vastus lateralis was transected along the anterior femoral margin and elevated subperiosteally around to the level of the lesser trochanter. The capsule Electronically Signed By: HARJINDER JOHN MD 09/16/25 0844 PATIENT NAME: RAFAL ROMO OPERATIVE REPORT DATE OF : 42 REPORT #: [id number] PHYSICIAN: HARJINDER JOHN MD PCP: PAVEL PALACIO PA-C REPORT IS CONFIDENTIAL AND NOT TO BE RELEASED WITHOUT AUTHORIZATION [facility] [address], [place] [address] Signed and gluteus minimus were cut from the tip of the trochanter along the anterior margin of the gluteus medius to the acetabular rim. This allowed visualization of the fracture. Fracture was a subcapital fracture, so the femoral neck cut was made one fingerbreadth above the lesser trochanter. The femoral head was then removed, taken to back table and measured. Initially, a 53 bipolar was placed in the acetabulum, however, this I thought was a little bit big so we trialed with a 52. This was found to be well fitting. Attention was then turned to the proximal femur. Proximal femur was opened using the WebSafetyie cutter, followed by the Charmilyey awl. The femur was then broached starting with a 1 up to a 6. The six was left in position. A standard offset neck and a +1.5 head was positioned and the hip was reduced. Leg lengths found to be good. He had excellent soft tissue tension and good range of motion. It was then dislocated. The trial was removed. The final stem was impacted until was seated flushed with the femoral neck cut. The bipolar construct was then placed on the trunnion after cleaning it. This was impacted and the hip was reduced. He was again taken through range of motion, found to be good. The wound was copiously irrigated with one bottle of Surgiphor followed by normal saline. Periarticular soft tissues were injected with 70 mL ropivacaine and Toradol mixture. The capsule was then closed using #2 FiberWire. The vastus and IT band layers were closed independently using #2 Stratafix, subcutaneous tissue with 0 Stratafix and skin with 3-0 Stratafix. Wound was sealed with LiquiBand, Steri-Strips and dressed with an Acticoat-7 dressing. He tolerated the procedure well. All sponge, needle, and instrument counts were correct. Harjinder John MD BA/MODL /[id number] Copies: ~ Electronically Signed By: HARJINDER JOHN MD 09/16/25 0844 PATIENT NAME: RAFAL ROMO OPERATIVE REPORT DATE OF : 42 REPORT #: [id number] PHYSICIAN: HARJINDER JOHN MD PCP: PAVEL PALACIO PA-C REPORT IS CONFIDENTIAL AND NOT TO BE RELEASED WITHOUT AUTHORIZATION
[2025-09-16] MEDS ORDERED: METOPROLOL SUCCINATE 25 MG TABCR PO SCH (09:00)
[2025-09-16] MEDS ORDERED: LOSARTAN POTASSIUM 100 MG TAB PO SCH (09:00)
--- NOTE | 2025-09-16 09:02 | NUR ---
HOURLY ROUNDING PATIENT LAYING IN BED, VISITING MELO KILGORE NO REQUEST FROM PATIENT CALL LIGHT HAS BEEN PALCED WITHIN REACH AND BOARD HAS BEEN UPDATED
--- NOTE | 2025-09-16 09:22 | NUR ---
SPEECH THERAPY ARRIVES TO FLOOR, WORKING WITH PATIENT AT THIS TIME.
--- NOTE | 2025-09-16 09:55 | NUR ---
ASSESSMENT COMPLETED WITH GRANDLINDSEY IN THE ROOM. PT RESTING IN BED, DENIES APIN AT THIS TIME. DRESSING TO (R) HIP INTACT, HAS 2 SPOTS OF SHADOWING BUT NO ACTIVE BLEEDING. ICE PACK REAPPLIED TO RIGHT HIP. CMS INTACT. SCDS IN PLACE. PT DID NOT HAVE GOOD APPETITE WHICH GRANDSON STATES IS HIS NORMAL, CLEAR ENSURE PROVIDED TO PATIENT -WHICH HE REALLY ENJOYED THIS MORNING. RC IN PLACE DRAINING YELLOW URINE, NOT CHRONIC, DENIES ANY PAIN AT SITE. TELE IN PLACE, SR IN THE 60-70'S THIS MORNING, DENIES CHEST PAIN. LS CLEAR THROUGHOUT, PT TOLERATED HIS PILLS AND ENSURE WITHOUT ANY ISSUES. ST WANTS TO TAKE PATIENT DOWN FOR BARIUM SWALLOW - ORDERS INPUT, PENDING TIME STILL FOR THAT. PT DENIES ANY FURTHER NEEDS, MYNOR HAS NO FURTHER QUESTIONS/CONCERSN AT THSI TIME. CALL LIGHT ON PATIENT LAP, BED ALARM IN PLACE FOR SAFETY. ALL PT CARE NEEDS MET AT THIS TIME.
--- NOTE | 2025-09-16 10:03 | NUR ---
INTO SEE PATIENT. SON AT BEDSIDE. IM COMPLETED. PATIENT FAMILY WOULD LIKE TO USE [employer] FOR DME COMPANY.
--- NOTE | 2025-09-16 10:29 | NUR ---
[facility]
--- NOTE | 2025-09-16 10:30 | NUR ---
PT UP TO WC AND TAKEN OFF FLOOR TO IMAGING FOR BARIUM SWALLOW.
--- NOTE | 2025-09-16 12:16 | NUR ---
PT JUST WORKED WITH PT, SITTING UP IN CHAIR. PT REPORTS PAIN VERY LITTLE, NOW THAT SITTING, WHEN ASKED TO RATE GIVES IT 8/10, PRN MEDS GIVEN - SEE JAN. PT INFORMED TO LET THIS RN KNOW IF PAIN DOES NOT IMPROVE AND WE CAN PROVIDE MORE PAIN MGMT, DO NOT WANT PAIN TO GET OUT OF CONTROL. GRANDSON VERBALIZES UNDERSTANDING WELL. VERY LITTLE APPETITE FOR LUNCH 30%, CLEAR ENSURE PROVIDED AGAIN. RC IN PLACE DRAINING YELLOW URINE. CALL LIGHT WITHIN REACH.
--- NOTE | 2025-09-16 12:28 | NUR ---
THIS RN GAVE REPORT TO ANA MARIA. NO OTHER CONCERNS AT THIS TIME.
--- NOTE | 2025-09-16 12:30 | NUR ---
report received from primary rn care assumed. pt sitting up in recliner resting with eyes closed. grandson is present in the room denies needs of
--- NOTE | 2025-09-16 13:57 | NUR ---
PT BACK TO THE BED FROM RECLINER FAMILY PRESENT AT BEDSIDE. PT DENIES DISCOMFORTS OR NEEDS OF
--- NOTE | 2025-09-16 14:47 | NUR ---
PT RESTING IN BED ICE TO R HIP SCD'S IN PLACE. PT DENIES DISCOMFORTS CALL LIGHT IN LAP
--- NOTE | 2025-09-16 17:20 | NUR ---
PT FOUND LEGS OVER THE SIDE OF THE BED STATED HE WAS GOING TO GET UP. OFFERED TO TAKE HIM TO THE CHAIR HE DECLINES. PT PICKING AT O2 FINGER PROBE REORIENTED TO WHAT IT IS AND WHERE HE IS. PT ENGAGES THIS TRAY SERVICE WORKER FOR A TIME THEN GOES BACK TO PICKING. STAFF ASSIST TO REPOSITION PT UPRIGHT IN BED FOR EVENING MEAL BED ALARM IS SET
--- NOTE | 2025-09-16 17:44 | NUR ---
HOURLY KAMERONN DING PATIENT LAYING IN BED, APPEARS CONFUSED AT TIMES. CALL LIGHT PLACED WITHIN REACH AND ALARMS ARE TURNED ON.
--- NOTE | 2025-09-16 18:23 | NUR ---
PT EATS ONLY ABOUT 30% OF EVENING MEAL STATES HE'S FULL. RESTING EYES CLOSED NOW
--- NOTE | 2025-09-16 19:26 | NUR ---
REPORT RECEIVED FROM DAY SHIFT RN. PT LYING IN BED RESTING WITH EYES CLOSED. SpO2 93% ON RA. HR 70'S. BED ALARM IN PLACE. WHITE BOARD UPDATED. CALL LIGHT IN REACH.
--- NOTE | 2025-09-16 20:28 | NUR ---
EVENING ASSESSMENT COMPLETE. SCHEDULED MEDS ADMIN PER EMAR. PT DENIES PAIN OR NAUSEA. RIGHT HIP DRESSING INTACT WITH SCANT AMOUNT OLD DRAINAGE. CMS INTACT. SCD'S/TEDS/ICE PACK IN PLACE. HEELS PROPPED UP ON PILLOW. ZAMAN PATENT WITH QS CONCENTRATED URINE. ZAMAN CARE COMPLETE. 2PA TO REPOSITION IN BED. CPOX IN PLACE. SpO2 LOW 90'S ON RA. TELE #4. HR 70'S. WARM BLANKET PROVIDED. NO FURTHER NEEDS. CALL LIGHT IN REACH. BED ALARM FOR SAFETY.
--- NOTE | 2025-09-16 20:45 | NUR ---
PT IN BED RESTING WITH EYES CLOSED. RESPIRATIONS EVEN. BED ALARM IN PLACE. CALL LIGHT IN REACH.
[2025-09-16] MEDS ORDERED: DEXTROSE 5% 1,000 ML IV PRN (22:00)
[2025-09-16] MEDS ORDERED: IBLOOD GLUCOSE TEST STRIP 1 EA TEST XX PRN (22:00)
[2025-09-16] MEDS ORDERED: DEXTROSE 50% 50 ML SYR IV PRN ×2 (22:00)
[2025-09-16] MEDS ORDERED: GLUCAGON,HUMAN RECOMBINANT 1 MG/ML VIAL SUB-Q PRN (22:00)
--- NOTE | 2025-09-17 00:01 | NUR ---
PT RESTING IN BED WITH EYES CLOSED. SpO2 93% ON RA. HR 70'S. BED ALARM IN PLACE. CALL LIGHT IN REACH.
--- NOTE | 2025-09-17 00:43 | NUR ---
PT AWAKE IN BED. DENIES PAIN. REPOSITIONED IN BED WITH PILLOW UNDER RIGHT HIP. EYE NOTED TO BE RED AND WATERY. PRN EYE DROPS ADMIN AFTER WASHING WITH WARM CLOTH. SIPS OF WATER PROVIDED. NO FURTHER NEEDS. BED ALARM IN PLACE. CALL LIGHT IN REACH.
[2025-09-17 01:52] VITALS: BP 152/60
--- NOTE | 2025-09-17 01:55 | NUR ---
VS OBTAINED. PT REPOSITIONED IN BED WITH PILLOW UNDER LEFT HIP. REPORT RIGHT HIP/BACK PAIN. PRN FOR PAIN ADMIN PER EMAR. ENSURE PROVIDED. PT DRANK APPROX HALF. NO COUGHING OR CHOKING NOTED WITH ENSURE. NO FURTHER NEEDS. BED ALARM IN PLACE. CALL LIGHT IN REACH.
--- NOTE | 2025-09-17 03:43 | NUR ---
CPOX ALARMING. PT ATTEMPTING TO PULL O2 SENSOR OFF FINGER, THINKS HE HAS AN APPOINTMENT TO GET TO. REORIENTATION PROVIDED. PT RECEPTIVE. ASSISTED TO REPOSITION IN BED. DENIES NEEDS. BED ALARM FOR SAFETY. CALL LIGHT IN REACH.
[2025-09-17 05:44] VITALS: BP 181/84
--- NOTE | 2025-09-17 06:00 | NUR ---
CPOX ALARMING. PT REMOVED SENSOR, TELE LEADS, AND GOWN. ATTEMPTING OOB WITHOUT ASSISTANCE. REORIENTATION PROVIDED. PT DENIES PAIN, MOVES EASILY. HOB ELEVATED. THICKENED WATER PROVIDED. NO COUGHING OR CHOKING NOTED. PRN BLOOD LYBDL=002. VS AND I&O OBTAINED. BP ELEVATED. PRN HTN ADMIN PER EMAR. 2PA TO REPOSITION IN BED. FRESH ICE PACK TO RIGHT HIP. BED ALARM FOR SAFETY. CALL LIGHT IN REACH.
--- NOTE | 2025-09-17 07:30 | NUR ---
PT AWAKE RESTING IN BED AT TIME OF SHIFT REPORT. MOVED TO CHAIR FROM BED 2PA FRESH H20 AND NEEDED ITEMS IN REACH. CALL LIGHT IN LAP TV TURNED TO [employer]
--- NOTE | 2025-09-17 07:50 | NUR ---
PATIENT SITTING UP IN CHAIR AT THIS TIME. WHITE BOARD UP DATED. CALL LIGHT IN REACH. NO FURTHER NEEDS AT THIS TIME.
--- NOTE | 2025-09-17 08:25 | NUR ---
PT REMAINS UP IN THE CHAIR DECLINES ANY BREAKFAST ITEMS. SON IS PRESENT IN THE ROOM ASKS ABOUT DC TIMING. QUESTIONS ANSWERED. PT AGREES HE IS COMFORTABLE AT THIS TIME DENIES NEEDS OF
--- NOTE | 2025-09-17 08:33 | NUR ---
PT DECLINES PAIN AT THIS TIME BUT MEDICATED WITH [facility]TIC[facility] P/T [facility]SP[facility].
--- NOTE | 2025-09-17 09:17 | NUR ---
Spoke with pt and his grandson, Bhupendra. They are waiting to speak with the hospitalist. Grandson feels they are ready to dc to home. They have a bed available for the pt. They would like the hospital bed as soon as possible, but do not require it for dc. He asks I add pts son's number to [facility] to call when they are delivering the bed. Son is Devin, . I called [facility] and they will have someone call me.
--- NOTE | 2025-09-17 09:31 | NUR ---
PT CONTINUES UP IN THE CHAIR WITH SON PRESENT ANTICIPATES DC. PT AGREES HE IS COMFORTABLE DENIES NEEDS OF
[2025-09-17 09:33] VITALS: BP 150/72
--- NOTE | 2025-09-17 09:42 | NUR ---
Pt would like to use [facility] as his is currently on [facility]. I will send the chart.
[2025-09-17] MEDS ORDERED: ASPIRIN325 MG PO (10:02)
--- NOTE | 2025-09-17 10:03 | NUR ---
SON REMAINS CHAIRSIDE. DC COMPOSING ROOM SUPERVISOR IN TO COORDINATE DC CARE OF PT ALL QUESTIONS ANSWERED
[2025-09-17] MEDS ORDERED: HYDROCODON-ACE1 EA11 PO (10:04)
[2025-09-17] MEDS ORDERED: ARTIFICIAL TEAR15 M3 OU (10:05)
--- NOTE | 2025-09-17 10:13 | NUR ---
DR MCKEE IN TO SEE PT AND DISCUSS DC AND TIMING WITH HE AND HIS SON. ALL QUESTIONS ANSWERED
[2025-09-17 10:19] VITALS: BP 147/80
--- NOTE | 2025-09-17 10:30 | NUR ---
Orders and chart faxed to [facility]. [facility] called and will deliver the walker and the bed today they gave contaced Devin. Pt denies further needs and will dc to home with family.,
== END 2025-09-17 11:05 | disposition home or self-care (01) | DRG 522 ==
LOC: ED 17:39 → MS 21:21
PROVIDERS: Internal Medicine; ADMIT Specialist; ATTEND Specialist
PROC: 3E03329 Introduction of Other Anti-infective into Peripheral Vein, Percutaneous Approach (ICD-10-PCS; 2025-09-13)
PROC: 0SRR0JZ Replacement of Right Hip Joint, Femoral Surface with Synthetic Substitute, Open Approach (ICD-10-PCS; principal; 2025-09-13 12:00)
DX: S72.001A Fracture of unspecified part of neck of right femur, initial encounter for closed fracture (principal); I51.81 Takotsubo syndrome; I10 Essential (primary) hypertension; N40.0 Benign prostatic hyperplasia without lower urinary tract symptoms; D64.9 Anemia, unspecified; R00.1 Bradycardia, unspecified; I48.91 Unspecified atrial fibrillation; F03.90 Unspecified dementia, unspecified severity, without behavioral disturbance, psychotic disturbance, mood disturbance, and anxiety; B02.9 Zoster without complications; Z87.891 Personal history of nicotine dependence; Z79.51 Long term (current) use of inhaled steroids; Z79.899 Other long term (current) drug therapy; W01.0XXA Fall on same level from slipping, tripping and stumbling without subsequent striking against object, initial encounter; Y92.009 Unspecified place in unspecified non-institutional (private) residence as the place of occurrence of the external cause
CPT/HCPCS: 01210; 36415; 51702; 51798; 64473; 70450; 72170; 73502; 73560; 74230; 80048; 80053; 81001; 83735; 84484; 85025; 85610; 87088; 92523; 92611; 93005; 93010; 94761; 94762; 94799; 97110; 97162; 97166; 97530; A9270; J0360; J0688; J1171; J2003; J2274; J2405; J2704; J2795; J3480; J3490; J7060; J7121